=== PATIENT | female | born 1970 | race Caucasian/White ===

== ENCOUNTER 2017-08-06 19:36 | Emergency (ER) | payer BC, OTHER ==
[~2017-08-06 19:36] MED LIST: TYLE500T PO
[2017-08-06 19:39] VITALS: BP 172/81; PULSE 88; RESP 20; TEMP 98.2; O2SAT 98
[2017-08-06 20:05] VITALS: BP 140/52; PULSE 78; RESP 18; O2SAT 97
--- NOTE | 2017-08-06 20:24 | PD ---
HPI Chief Complaint: Chest Pain Time Seen by Provider: 20:17 Travel History International Travel<30 days: No Contact w/Intl Traveler<30days: No Traveled to known affect area: No History of Present Illness HPI The patient is a 46-year-old female with no history of heart disease who complains of a sharp, ripping, tearing pain in her back on the left radiating to the left sternal area for 2 days. The pain last 30-60 minutes at a time and comes and goes. She does have nausea, diaphoresis and shortness of breath but denies any radiation of pain other than to her front left sternum. She states she had a similar episode 2 years ago which just went away and never came back. She denies any syncopal or near syncopal spells. She does have a history of bronchitis. She has never smoked. She has had a hysterectomy and cannot be . She denies any hemoptysis or fever. She complains of a pain of 3/10 now but when she goes into one of her episodes it is a 10 over 10. PFSH Past Medical History Anxiety: Yes Cancer: No Cardiovascular Problems: No Diabetes: No Diminished Hearing: No Endocrine: No Gastrointestinal Disorders: Yes (ULCER DISEASE) Genitourinary: No Hepatitis: No Hiatal Hernia: No Immune Disorder: No Musculoskeletal: No Neurologic: No Psychiatric: Yes (ANXIETY) Reproductive: No Respiratory: No Thyroid Disease: No Ulcer: Yes Tetanus Vaccination: > 5 Years Influenza Vaccination: Yes ?: Not : 4 Para: 4 Dilation and Curettage (D&C): Yes Past Surgical History AICD: No Section: Yes (X1) Gynecologic Surgery: Yes (C SECTION, HYSTERECTOMY, ENDOMETRIAL ABLATION) Hysterectomy: Yes Joint Replacement: No Pacemaker: No Other Surgery: Yes Social History Alcohol Use: No Tobacco Use: No Substance Use: No Allergies-Medications (Allergen,Severity, Reaction): Coded Allergies: Sulfa (Sulfonamide Antibiotics) (Unverified Allergy, Severe, HIVES, ) latex (Unverified Allergy, Severe, Respiratory Failure, 08/06/17) Reported Meds & Prescriptions Reported Meds & Active Scripts Active Ibuprofen 600 Mg Tab 600 Mg PO TID Review of Systems Except as stated in HPI: all other systems reviewed are Neg Physical Exam Narrative GENERAL: The patient is alert, oriented 3 and slight apparent distress with her chest discomfort. Her vital signs initially show blood pressure 172/81 but repeat blood pressure is 140/52. The rest the vital signs are normal. SKIN: Focused skin assessment warm/dry. HEAD: Atraumatic. Normocephalic. EYES: Pupils equal and round. No scleral icterus. No injection or drainage. ENT: No nasal bleeding or discharge. Mucous membranes pink and moist. NECK: Trachea midline. No JVD. CARDIOVASCULAR: Regular rate and rhythm. No murmur appreciated. RESPIRATORY: No accessory muscle use. Clear to auscultation. Breath sounds equal bilaterally. I cannot reproduce the patient's chest pain by pressing on the chest wall. GASTROINTESTINAL: Abdomen soft, non-tender, nondistended. Hepatic and splenic margins not palpable. MUSCULOSKELETAL: No obvious deformities. No clubbing. No cyanosis. No edema. NEUROLOGICAL: Awake and alert. No obvious cranial nerve deficits. Motor grossly within normal limits. Normal speech. PSYCHIATRIC: Appropriate mood and affect; insight and judgment normal. Data Data Last Documented VS Vital Signs Date Time Temp Pulse Resp B/P (MAP) Pulse Ox O2 Delivery O2 Flow Rate FiO2 08/06/17 22:43 76 16 136/55 (82) 99 Room Air 08/06/17 19:39 98.2 Orders Orders Electrocardiogram (08/06/17 20:17) Ckmb (Isoenzyme) Profile (08/06/17 20:17) Complete Blood Count With Diff (08/06/17 20:17) Comprehensive Metabolic Panel (08/06/17 20:17) Magnesium (Mg) (08/06/17 20:17) Prothrombin Time / Inr (Pt) (08/06/17 20:17) Act Partial Throm Time (Ptt) (08/06/17 20:17) Troponin I (08/06/17 20:17) Ecg Monitoring (08/06/17 20:17) Bilateral Bp Monitoring (08/06/17 20:17) Iv Access Insert/Monitor (08/06/17 20:17) Oximetry (08/06/17 20:17) Oxygen Administration (08/06/17 20:17) Sodium Chloride 0.9% Flush (Ns Flush) (08/06/17 20:30) Cta Thor Abd Aorta W Iv C W3d (08/06/17 20:17) Iohexol 350 Inj (Omnipaque 350 Inj) (08/06/17 21:01) Ketorolac Inj (Toradol Inj) (08/06/17 22:45) Labs Laboratory Tests Test 08/06/17 20:20 White Blood Count 13.2 TH/MM3 Red Blood Count 5.17 MIL/MM3 Hemoglobin 14.2 GM/DL Hematocrit 42.4 % Mean Corpuscular Volume 82.1 FL Mean Corpuscular Hemoglobin 27.5 PG Mean Corpuscular Hemoglobin Concent 33.5 % Red Cell Distribution Width 12.6 % Platelet Count 306 TH/MM3 Mean Platelet Volume 7.5 FL Neutrophils (%) (Auto) 71.1 % Lymphocytes (%) (Auto) 22.1 % Monocytes (%) (Auto) 5.2 % Eosinophils (%) (Auto) 1.1 % Basophils (%) (Auto) 0.5 % Neutrophils # (Auto) 9.4 TH/MM3 Lymphocytes # (Auto) 2.9 TH/MM3 Monocytes # (Auto) 0.7 TH/MM3 Eosinophils # (Auto) 0.1 TH/MM3 Basophils # (Auto) 0.1 TH/MM3 CBC Comment DIFF FINAL Differential Comment Prothrombin Time 9.9 SEC Prothromb Time International Ratio 0.9 RATIO Activated Partial Thromboplast Time 29.1 SEC Blood Urea Nitrogen 10 MG/DL Creatinine 0.50 MG/DL Random Glucose 91 MG/DL Total Protein 8.1 GM/DL Albumin 4.0 GM/DL Calcium Level 9.1 MG/DL Magnesium Level 2.4 MG/DL Alkaline Phosphatase 99 U/L Aspartate Amino Transf (AST/SGOT) 21 U/L Alanine Aminotransferase (ALT/SGPT) 43 U/L Total Bilirubin 0.4 MG/DL Sodium Level 138 MEQ/L Potassium Level 3.6 MEQ/L Chloride Level 102 MEQ/L Carbon Dioxide Level 26.2 MEQ/L Anion Gap 10 MEQ/L Estimat Glomerular Filtration Rate 132 ML/MIN Total Creatine Kinase 56 U/L Troponin I LESS THAN 0.02 NG/ML MDM Medical Decision Making Medical Screen Exam Complete: Yes Emergency Medical Condition: Yes Medical Record Reviewed: Yes Interpretation(s) EKG shows sinus rhythm with a rate of [address] elevation or depression. The coagulation profile is normal. The white count is 13,200 but the rest of the CBC is unremarkable. The complete metabolic profile is normal and the cardiac enzymes are normal. Differential Diagnosis Acute coronary syndrome-unlikely, pneumothorax-unlikely, chest wall pain, chest pain etiology undetermined, esophageal pain, gastrointestinal pain, pleuritic pain, musculoskeletal pain, aortic dissection Narrative Course The patient appears to have musculoskeletal pain. There is no evidence for any dissecting aneurysm or other acute problem as mentioned above. Plan: The patient be given Motrin 600 mg 3 times daily and follow-up with Dr. Goodman next week. Diagnosis Primary Impression: Musculoskeletal back pain Additional Instructions: As we discussed, follow-up with Dr. Goodman next week. The ibuprofen is one tablet 3 times daily taken regularly. When you get high anti-inflammatory levels, usually after 3 or 4 days, the pain usually goes away. Med/Other Pt SpecificInfo: Prescription(s) given Scripts Ibuprofen (Ibuprofen) 600 Mg Tab 600 MG PO TID, #33 TAB 0 Refills Prov: Keshav Rm MD 08/06/17 Disposition: 01 DISCHARGE HOME Condition: Stable Keshav Rm MD Aug 06, 2017 20:24
[2017-08-06 20:26] LABS: AUTOMATED NEUTROPHIL # 9.4 TH/MM3 (1.8-7.7); BASOPHIL # 0.1 TH/MM3 (0-0.2); BASOPHIL % 0.5 % (0.0-2.0); EOSINOPHIL # 0.1 TH/MM3 (0-0.4); EOSINOPHIL % 1.1 % (0.0-4.0); HEMATOCRIT 42.4 % (35.0-46.0); HEMO FLAGS DIFF FINAL; LYMPH % 22.1 % (9.0-44.0); LYMPHOCYTE # 2.9 TH/MM3 (1.0-4.8); MEAN CELL VOLUME 82.1 FL (80.0-100.0); MEAN CORPUSCULAR HEMOGLOBIN 27.5 PG (27.0-34.0); MEAN CORPUSCULAR HGB CONC 33.5 % (32.0-36.0); MONO % 5.2 % (0.0-8.0); NEUT % 71.1 % (16.0-70.0); PLATELET COUNT 306 TH/MM3 (150-450); RED BLOOD COUNT 5.17 MIL/MM3 (4.00-5.30); RED CELL DISTRIBUTION WIDTH 12.6 % (11.6-17.2); WHITE BLOOD COUNT 13.2 TH/MM3 (4.0-11.0)
[2017-08-06 20:27] VITALS: RESP 18; O2SAT 98
[2017-08-06] MEDS ORDERED: SODIUM CHLORIDE 0.9% FLUSH 10 ML FLUSH IVF PRN (20:30)
[2017-08-06 20:31] VITALS: BP_SYST 130; BP_SYST 136; BP_DIAS 69; BP_DIAS 72
[2017-08-06 20:34] LABS: CHLORIDE 102 MEQ/L (98-107); POTASSIUM 3.6 MEQ/L (3.5-5.1); SODIUM (NA) 138 MEQ/L (136-145)
[2017-08-06 20:38] LABS: ANION GAP 10 MEQ/L (5-15); BICARBONATE 26.2 MEQ/L (21.0-32.0); BLOOD UREA NITROGEN 10 MG/DL (7-18); MAGNESIUM 2.4 MG/DL (1.5-2.5)
[2017-08-06 20:41] LABS: ALT (GPT) 43 U/L (10-53); AST (GOT) 21 U/L (15-37); GLOMERULAR FILTRATION RATE 132 ML/MIN (>89)
[2017-08-06 20:42] LABS: TOTAL BILIRUBIN ADULT 0.4 MG/DL (0.2-1.0)
[2017-08-06 20:44] LABS: ALKALINE PHOSPHATASE 99 U/L (45-117)
[2017-08-06 20:54] LABS: APTT (PATIENT) 29.1 SEC (24.3-30.1); INTERNATIONAL NORMALIZED RATIO 0.9 RATIO; PROTHROMBIN TIME - PATIENT 9.9 SEC (9.8-11.6)
[2017-08-06 20:55] LABS: CREATINE KINASE 56 U/L (26-192)
[2017-08-06] MEDS ORDERED: IOHEXOL 350 MG/ML 10 ML VIAL (for RAD DIAG) IVCONTRAST ONE (21:01)
--- NOTE | 2017-08-06 21:10 | RADRPT ---
EXAM DATE/TIME: 08/06/2017 20:31 [facility] COMPARISON: No previous studies available for comparison. INDICATIONS : Left sided chest and back pain. IV CONTRAST: 100 cc Omnipaque 350 (iohexol) IV RADIATION DOSE: 23.06 CTDIvol (mGy) MEDICAL HISTORY : None SURGICAL HISTORY : section. Hysterectomy. ENCOUNTER: Initial ACUITY: 2 days PAIN SCALE: 8/10 LOCATION: Left chest TECHNIQUE: Volumetric scanning was performed using a multi-row detector CT scanner. The data was post processed with a variety of visualization algorithms including full volume maximum intensity projection, multi -planar sliding thin slab reformation, curved planar reformation, and surface rendering techniques. Using automated exposure control and adjustment of the mA and/or kV according to patient size, radiat ion dose was kept as low as reasonably achievable to obtain optimal diagnostic quality images. DICOM format image data is available electronically for review and comparison. FINDINGS: LUNGS: There is no consolidation or pneumothorax. No concerning pulmonary nodule is visualized. No pleural fluid is present. MEDIASTINUM: No abnormally enlarged lymph nodes by CT criteria. No axillary or hilar abnormalities are identified. ABDOMEN: The liver and spleen are free of focal defects. The gallbladder and pancreas demonstrate no abnormali ty. The adrenal glands are normal. The kidneys demonstrate no evidence of solid renal mass or hydrone phrosis. No free fluid or abdominal masses are identified. No para-aortic adenopathy is seen. PELVIS: No evidence of free fluid or pelvic mass. No abnormally enlarged inguinal or retroperitoneal lymph no lalo are present. The bladder is unremarkable. THORACIC AORTA: The thoracic aortic root is normal with normal branching of the great vessels. There is no evidence of aneurysm or dissection. ABDOMINAL AORTA: The aorta is normal in caliber without aneurysm or dissection. The renal arteries are patent bilater ally. The proximal celiac and superior mesenteric arteries are patent and normal in diameter. PELVIC VESSELS: The internal iliac and external iliac vessels are patent without aneurysm or stenosis. CONCLUSION: Negative exam. The aorta is within normal limits with no aneurysm or dissection. Bk Dunn MD on August 06, 2017 at 21:06 Board Certified Radiologist. This report was verified electronically.
[2017-08-06] MEDS ORDERED: IBUP-232 PO (22:42)
[2017-08-06 22:43] VITALS: BP 136/55; PULSE 76; RESP 16; O2SAT 99
[2017-08-06] MEDS ORDERED: KETOROLAC TROMETHAMINE 60 MG/2 ML (IM) VIAL IVP ONE (22:45)
--- NOTE | 2017-08-07 16:41 | EKG ---
Date Performed: 08/06/2017 Time Performed: 19:47:30 PTAGE: 46 years EKG: Sinus rhythm PATTERN CONSISTENT WITH PULMONARY DISEASE LEFT ANTERIOR FASCICULAR BLOCK Poor R wave progression, ca nnot rule out possible septal injury, But largely unchanged from prior tracing. ABNORMAL ECG PREVIOUS TRACING : 04/25/2013 13.37 DOCTOR: Rusty Sehtty Interpretating Date/Time 08/07/2017 16:40:13
== END 2017-08-06 22:55 | disposition home or self-care (01) ==
LOC: PHED 19:36
DX: M54.9 Dorsalgia, unspecified (principal); R06.02 Shortness of breath; R94.31 Abnormal electrocardiogram [ECG] [EKG]
CPT/HCPCS: 71275; 74174; 80053; 82550; 83735; 84484; 85025; 85610; 85730; 93005; 99285; Q9967